=== PATIENT | female | born 1985 | race Caucasian/White ===

== ENCOUNTER 2017-03-13 14:09 | Emergency (ER) | payer MEDICAID, SELFPAY ==
[~2017-03-13] VITALS: Ht 160 cm; Wt 46.0 kg
[2017-03-13 15:04] LABS: BASOPHILS # (AUTO) 0.11 x10^3/uL (0-0.1); BASOPHILS % (AUTO) 1 % (0-1); EOSINOPHILS # (AUTO) 0.09 x10^3/uL (0-0.4); EOSINOPHILS % (AUTO) 1 % (1-7); LYMPHOCYTES # (AUTO) 1.96 x10^3/uL (1-3.4); LYMPHOCYTES % (AUTO) 26 % (22-44); MD NO; MEAN CORPUSCULAR HEMOGLOBIN 30.2 pg (27.0-34.8); MEAN CORPUSCULAR HGB CONC 33.5 g/dL (32.4-35.8); MEAN CORPUSCULAR VOLUME 90.3 fL (80-100); MEAN PLATELET VOLUME 7.2 fL (7.4-10.4); MONOCYTES # (AUTO) 0.49 x10^3/uL (0.2-0.8); MONOCYTES % (AUTO) 6 % (2-9); NEUTROPHILS # (AUTO) 4.94 x10^3/uL (1.8-6.8); NEUTROPHILS % (AUTO) 65 % (42-75); PLATELET COUNT 329 x10^3/uL (130-400); RED BLOOD COUNT 4.25 x10^6/uL (3.82-5.3); RED CELL DISTRIBUTION WIDTH 13.6 % (9.6-15.2)
[2017-03-13 15:30] VITALS: BP 157/106
[2017-03-13 15:55] LABS: ALANINE AMINOTRANSFERASE 63 U/L (12-78); ALBUMIN 3.9 g/dL (3.4-5.0); ALKALINE PHOSPHATASE 72 U/L (45-117); ANION GAP 10 mmol/L (5-15); BILIRUBIN,TOTAL 0.3 mg/dL (0.2-1.0); CALCIUM 9.1 mg/dL (8.5-10.1); CHLORIDE 109 mmol/L (98-107); CREATININE 0.89 mg/dL (0.55-1.02); TOTAL PROTEIN 7.4 g/dL (6.4-8.2)
== END 2017-03-13 16:42 | disposition home or self-care (01) ==
LOC: ED 16:30
DX: S16.1XXA Strain of muscle, fascia and tendon at neck level, initial encounter (principal); S46.911A Strain of unspecified muscle, fascia and tendon at shoulder and upper arm level, right arm, initial encounter; S46.912A Strain of unspecified muscle, fascia and tendon at shoulder and upper arm level, left arm, initial encounter; X58.XXXA Exposure to other specified factors, initial encounter; Y93.89 Activity, other specified; Y92.098 Other place in other non-institutional residence as the place of occurrence of the external cause; Y99.8 Other external cause status
CPT/HCPCS: 36415; 80053; 85025; 99284

== ENCOUNTER 2019-07-11 18:32 | Inpatient (IN) | payer MEDICAID ==
[~2019-07-11] VITALS: Ht 160 cm; Wt 43.6 kg
--- NOTE | 2019-07-11 18:44 | NUR ---
PT TO RM AT THIS TIME
--- NOTE | 2019-07-11 19:03 | NUR ---
THIS IS A 34Y F THAT COMES IN TONIGHT FOR C/O AMB PAIN, NAUSEA, AND HILTON [id number]. PT STS HX OF PANCREATITIS AND WAS SEEN AT [facility] WITHIN THE WEEK FOR THE SAME THING. PT REPORTS HX OF HTN WHEN DRINKING BUT DENIES HTN DX. PT CONNECTED TO MONITORING MD AWARE OF VITALS
--- NOTE | 2019-07-11 19:03 | NUR ---
MD AT BEDSIDE TO ASSESS PT
[2019-07-11] MEDS ORDERED: ONDANSETRON 2MG/ML, 2ML ONE (19:20)
[2019-07-11] MEDS ORDERED: PROMETHAZINE 25 MG/ML, 1ML ONE (19:20)
[2019-07-11] MEDS ORDERED: MORPHINE SULFATE 4 MG/ML, 1ML ONE (19:21)
--- NOTE | 2019-07-11 19:29 | NUR ---
PIV STARTED PT MEDICATED PER MAR
[2019-07-11] MEDS ORDERED: ONDANSETRON 2MG/ML, 2ML IVPush ONE (19:30)
[2019-07-11] MEDS ORDERED: MORPHINE SULFATE 4 MG/ML, 1ML IVPush PRN (19:30)
[2019-07-11] MEDS ORDERED: SODIUM CHLORIDE 0.9% 1,000ML IVBOLUS ONE (19:30)
[2019-07-11] MEDS ORDERED: PROMETHAZINE 25 MG/ML, 1ML IM ONE (19:30)
[2019-07-11 19:34] LABS: BASOPHILS # (AUTO) 0.03 x10^3/uL (0-0.1); BASOPHILS % (AUTO) 1 % (0-1); EOSINOPHILS # (AUTO) 0.07 x10^3/uL (0-0.4); EOSINOPHILS % (AUTO) 1 % (1-7); LYMPHOCYTES # (AUTO) 2.53 x10^3/uL (1-3.4); LYMPHOCYTES % (AUTO) 48 % (22-44); MD NO; MEAN CORPUSCULAR HEMOGLOBIN 32.4 pg (27.0-34.8); MEAN CORPUSCULAR HGB CONC 33.7 g/dL (32.4-35.8); MEAN CORPUSCULAR VOLUME 96.1 fL (80-100); MEAN PLATELET VOLUME 6.6 fL (7.4-10.4); MONOCYTES # (AUTO) 0.36 x10^3/uL (0.2-0.8); MONOCYTES % (AUTO) 7 % (2-9); NEUTROPHILS # (AUTO) 2.31 x10^3/uL (1.8-6.8); NEUTROPHILS % (AUTO) 44 % (42-75); PLATELET COUNT 272 x10^3/uL (130-400); RED BLOOD COUNT 3.96 x10^6/uL (3.82-5.3); RED CELL DISTRIBUTION WIDTH 16.1 % (9.6-15.2)
[2019-07-11 19:47] LABS: ALBUMIN 3.2 g/dL (3.4-5.0); ANION GAP 8 mmol/L (5-15); CALCIUM 8.4 mg/dL (8.5-10.1); CHLORIDE 106 mmol/L (98-107); CREATININE 0.82 mg/dL (0.55-1.02)
[2019-07-11 19:52] LABS: ALKALINE PHOSPHATASE 90 U/L (45-117); BILIRUBIN,TOTAL 0.3 mg/dL (0.2-1.0); TOTAL PROTEIN 6.3 g/dL (6.4-8.2)
[2019-07-11 19:55] LABS: ALANINE AMINOTRANSFERASE 71 U/L (12-78)
--- NOTE | 2019-07-11 20:09 | NUR ---
PT UP TO RESTROOM TO URINE SAMPLE, URINE WALKED TO LAB AT THIS TIME
[2019-07-11 20:17] LABS: MICROSCOPIC AUTO
[2019-07-11] MEDS ORDERED: LABETALOL 5MG/ML, 20ML ONE (20:34)
[2019-07-11 20:35] LABS: AMPHETAMINE SCREEN, URINE Negative (Negative); BARBITURATE SCREEN, URINE Negative (Negative); BENZODIAZEPINE SCREEN, URINE Negative (Negative); CANNABINOID SCREEN, URINE Negative (Negative); COCAINE SCREEN, URINE Negative (Negative); METHADONE SCREEN, URINE Negative (Negative); OPIATE SCREEN, URINE Positive (Negative)
--- NOTE | 2019-07-11 20:37 | NUR ---
PT MEDICATED PER APR FOR HTN PER DR OAKES
--- NOTE | 2019-07-11 20:48 | NUR ---
BP NOW 170/115, ERP TO BE UPDATED AT THIS TIME
[2019-07-11] MEDS ORDERED: ENALAPRILAT 1.25 MG/ML, 1ML ONE (20:51)
--- NOTE | 2019-07-11 20:59 | NUR ---
ADDITIONAL ORDERS AT THIS TIME. PT MEDICATED PER APR, BP NOW 194/110, DR OAKES AT BEDSIDE TO REASSESS PT
[2019-07-11] MEDS ORDERED: LABETALOL 5MG/ML, 20ML IVPush ONE (21:00)
[2019-07-11] MEDS ORDERED: ENALAPRILAT 1.25 MG/ML, 2ML IV ONE (21:00)
[2019-07-11] MEDS ORDERED: POTASSIUM CHLORIDE 20 MEQ, MAGNESIUM SULFATE 1 GM, FOLIC ACID 1 MG, THIAMINE 200 MG, MV... IV SCH (21:00)
--- NOTE | 2019-07-11 21:40 | NUR ---
TP RN: PT WITH NON-CONTRACTED HEALTH INSURANCE. PT DENIED FROM [facility].
[2019-07-11 21:59] LABS: INTERNATIONAL NORMALIZED RATIO 1.08 (0.93-1.1); PROTHROMBIN TIME 11.5 Seconds (9.6-11.5)
--- NOTE | 2019-07-11 22:14 | NUR ---
PT RESTING ON TAERNEG[place] NAD[place]oco, REPORTS IMPROVED PAIN AND NAUSEA SINCE ARRIVING
--- NOTE | 2019-07-11 22:30 | NUR ---
HOSPITALIST AT BEDSIDE TO ADMIT PT AT THIS TIME
--- NOTE | 2019-07-11 22:51 | NUR ---
REPORT TO FLOOR RN PT READY FOR TRANSFER TO FLOOR ALL QUESTIONS ADDRESSED
[2019-07-11] MEDS ORDERED: BISACODYL 10 MG SUPP PR PRN (23:00)
[2019-07-11] MEDS ORDERED: POLYETHYLENE GLYCOL 17 GM PACKET PO PRN (23:00)
[2019-07-11] MEDS ORDERED: ONDANSETRON 2MG/ML, 2ML IVPush PRN (23:00)
[2019-07-11] MEDS ORDERED: ACETAMINOPHEN 325 MG TABLET PO PRN (23:00)
[2019-07-11] MEDS: NICOTINE 7 MG/24 HR PATCH.TD24 TD SCH (23:00)
[2019-07-11 23:31] VITALS: BP 159/103
[2019-07-12] VITALS (7 sets, daily range): BP systolic 155–196; BP diastolic 97–119
[2019-07-12] MEDS: HEPARIN 5,000 UNITS/ML, 1ML SQ SCH ×3 (00:24→17:03)
[2019-07-12] MEDS: POTASSIUM CHLORIDE 40 MEQ in LACTATED RINGERS 1,000 ML IV SCH ×3 (02:38→14:40)
[2019-07-12 05:50] LABS: BASOPHILS # (AUTO) 0.02 x10^3/uL (0-0.1); BASOPHILS % (AUTO) 1 % (0-1); EOSINOPHILS # (AUTO) 0.07 x10^3/uL (0-0.4); EOSINOPHILS % (AUTO) 2 % (1-7); LYMPHOCYTES # (AUTO) 2.13 x10^3/uL (1-3.4); LYMPHOCYTES % (AUTO) 49 % (22-44); MD NO; MEAN CORPUSCULAR HEMOGLOBIN 32.7 pg (27.0-34.8); MEAN CORPUSCULAR HGB CONC 34.3 g/dL (32.4-35.8); MEAN CORPUSCULAR VOLUME 95.5 fL (80-100); MEAN PLATELET VOLUME 6.8 fL (7.4-10.4); MONOCYTES # (AUTO) 0.28 x10^3/uL (0.2-0.8); MONOCYTES % (AUTO) 6 % (2-9); NEUTROPHILS # (AUTO) 1.89 x10^3/uL (1.8-6.8); NEUTROPHILS % (AUTO) 43 % (42-75); PLATELET COUNT 205 x10^3/uL (130-400); RED BLOOD COUNT 3.25 x10^6/uL (3.82-5.3); RED CELL DISTRIBUTION WIDTH 16.5 % (9.6-15.2)
[2019-07-12 05:59] LABS: ALANINE AMINOTRANSFERASE 54 U/L (12-78); ALBUMIN 2.7 g/dL (3.4-5.0); ANION GAP 6 mmol/L (5-15); CALCIUM 7.5 mg/dL (8.5-10.1); CHLORIDE 113 mmol/L (98-107); CREATININE 0.68 mg/dL (0.55-1.02)
[2019-07-12 06:03] LABS: ALKALINE PHOSPHATASE 64 U/L (45-117); BILIRUBIN,TOTAL 0.4 mg/dL (0.2-1.0); CHOLESTEROL, TOTAL 120 mg/dL (140-239); HDL CHOL % 51 % (28-40); HDL CHOLESTEROL (DIRECT) 61 mg/dL (40-60); LDL CHOLESTEROL,CALCULATED 8 mg/dL (54-169); LDL/HDL RATIO 0.1 (0.5-3.0); TOTAL PROTEIN 5.3 g/dL (6.4-8.2); TRIGLYCERIDES 256 mg/dL (50-200); VLDL CHOLESTEROL 51 mg/dL (0-25)
[2019-07-12] MEDS: INSULIN LISPRO 100 UNITS/ML, PEN SQ-INSULIN SCH ×4 (07:00→21:00)
[2019-07-12] MEDS ORDERED: MAGNESIUM SULFATE PMX 2GM/50ML 50 ML IV ONE (08:00)
[2019-07-12] MEDS: SENNA/DOCUSATE TABLET PO SCH ×2 (08:54→08:58)
[2019-07-12] MEDS: HYDROmorphone 2 MG/ML, 1ML IVPush PRN ×2 (08:55→18:06)
[2019-07-12] MEDS ORDERED: LORazepam 0.5MG TABLET PO PRN (12:30)
[2019-07-12] MEDS: hydrALAzine 20 MG/ML, 1ML IVPush PRN (14:40)
[2019-07-12] MEDS: ENALAPRILAT 1.25 MG/ML, 1ML IV PRN (17:03)
[2019-07-12] MEDS: NICOTINE 7 MG/24 HR PATCH.TD24 TD SCH (23:00)
[2019-07-13] VITALS (7 sets, daily range): BP systolic 148–179; BP diastolic 87–100
[2019-07-13] MEDS: POTASSIUM CHLORIDE 40 MEQ in LACTATED RINGERS 1,000 ML IV SCH ×3 (00:18→22:18)
[2019-07-13] MEDS: HEPARIN 5,000 UNITS/ML, 1ML SQ SCH ×3 (01:09→16:09)
[2019-07-13] MEDS: HYDROmorphone 2 MG/ML, 1ML IVPush PRN ×3 (01:20→10:32)
[2019-07-13] MEDS: INSULIN LISPRO 100 UNITS/ML, PEN SQ-INSULIN SCH ×4 (07:00→21:00)
[2019-07-13] MEDS: hydrALAzine 20 MG/ML, 1ML IVPush PRN (07:46)
[2019-07-13] MEDS: SENNA/DOCUSATE TABLET PO SCH (08:27)
[2019-07-13 09:29] LABS: ANION GAP 9 mmol/L (5-15); C-REACTIVE PROTEIN, QUANT 0.06 mg/dL (0.02-0.49); CALCIUM 8.2 mg/dL (8.5-10.1); CHLORIDE 106 mmol/L (98-107); CREATININE 0.48 mg/dL (0.55-1.02)
[2019-07-13 10:03] LABS: MD YES; MEAN CORPUSCULAR HEMOGLOBIN 32.5 pg (27.0-34.8); MEAN CORPUSCULAR HGB CONC 33.2 g/dL (32.4-35.8); MEAN CORPUSCULAR VOLUME 97.6 fL (80-100); MEAN PLATELET VOLUME 7.3 fL (7.4-10.4); PLATELET COUNT 199 x10^3/uL (130-400); RED BLOOD COUNT 3.62 x10^6/uL (3.82-5.3); RED CELL DISTRIBUTION WIDTH 16.3 % (9.6-15.2)
[2019-07-13 10:24] LABS: <RBC MORPHOLOGY> NORMAL; EOS#(MANUAL) 0.09 x10^3/uL (0.0-0.4); EOS% (MANUAL) 2 % (1-7); LYMPH#(MANUAL) 1.94 x10^3/uL (1-3.4); LYMPHS% (MANUAL) 45 % (22-44); MONOS#(MANUAL) 0.22 x10^3/uL (0.3-2.7); MONOS% (MANUAL) 5 % (2-9); SEG#(MANUAL) 2.06 x10^3/uL (1.8-6.8); SEGS% (MANUAL) 48 % (42-75)
[2019-07-13 10:25] LABS: <PLATELET ESTIMATE> ADEQUATE; <PLT MORPHOLOGY> NORMAL PLT MORPH
[2019-07-13 10:28] LABS: HCT (SEDRATE) 35.4 % (34.6-47.8)
[2019-07-13 10:29] LABS: HEMOGRAM NOTE RECHECKED
[2019-07-13] MEDS ORDERED: ENALAPRILAT 1.25 MG/ML, 2ML ONE (11:14)
[2019-07-13] MEDS: ENALAPRILAT 1.25 MG/ML, 1ML IV PRN (11:17)
[2019-07-13] MEDS: NICOTINE 7 MG/24 HR PATCH.TD24 TD SCH (23:00)
[2019-07-14] MEDS: HEPARIN 5,000 UNITS/ML, 1ML SQ SCH ×2 (00:52→07:52)
[2019-07-14 02:00] VITALS: BP 162/93
[2019-07-14 06:15] LABS: BASOPHILS # (AUTO) 0.02 x10^3/uL (0-0.1); BASOPHILS % (AUTO) 1 % (0-1); EOSINOPHILS # (AUTO) 0.08 x10^3/uL (0-0.4); EOSINOPHILS % (AUTO) 2 % (1-7); LYMPHOCYTES # (AUTO) 1.85 x10^3/uL (1-3.4); LYMPHOCYTES % (AUTO) 45 % (22-44); MD NO; MEAN CORPUSCULAR HEMOGLOBIN 32.5 pg (27.0-34.8); MEAN CORPUSCULAR HGB CONC 33.5 g/dL (32.4-35.8); MEAN CORPUSCULAR VOLUME 97.2 fL (80-100); MEAN PLATELET VOLUME 7.4 fL (7.4-10.4); MONOCYTES # (AUTO) 0.26 x10^3/uL (0.2-0.8); MONOCYTES % (AUTO) 6 % (2-9); NEUTROPHILS # (AUTO) 1.94 x10^3/uL (1.8-6.8); NEUTROPHILS % (AUTO) 47 % (42-75); PLATELET COUNT 199 x10^3/uL (130-400); RED BLOOD COUNT 3.96 x10^6/uL (3.82-5.3); RED CELL DISTRIBUTION WIDTH 17.4 % (9.6-15.2)
[2019-07-14 06:17] LABS: HCT (SEDRATE) 38.2 % (34.6-47.8)
[2019-07-14 06:27] LABS: ANION GAP 9 mmol/L (5-15); CALCIUM 8.6 mg/dL (8.5-10.1); CHLORIDE 106 mmol/L (98-107)
[2019-07-14 06:30] LABS: C-REACTIVE PROTEIN, QUANT 0.06 mg/dL (0.02-0.49); CREATININE 0.53 mg/dL (0.55-1.02)
[2019-07-14 06:31] VITALS: BP 183/106
[2019-07-14] MEDS: INSULIN LISPRO 100 UNITS/ML, PEN SQ-INSULIN SCH ×3 (07:00→14:57)
[2019-07-14] MEDS: SENNA/DOCUSATE TABLET PO SCH (07:52)
[2019-07-14] MEDS: hydrALAzine 20 MG/ML, 1ML IVPush PRN (07:52)
[2019-07-14 08:48] VITALS: BP 150/96
[2019-07-14] MEDS: POTASSIUM CHLORIDE 40 MEQ in LACTATED RINGERS 1,000 ML IV SCH (11:16)
[2019-07-14 12:08] VITALS: BP 154/109
[2019-07-14] MEDS ORDERED: FOLI-17 PO (12:54)
[2019-07-14] MEDS ORDERED: MULT-658 PO (12:54)
[2019-07-14] MEDS ORDERED: THIA100T67 PO (12:54)
[2019-07-14] MEDS ORDERED: HYDR-3343 PO (13:45)
== END 2019-07-14 15:49 | disposition home or self-care (01) | DRG 440 ==
LOC: ED 20:09 → EDIP 21:44 → 5SO 23:23 → 4EST 07-12 17:56
PROVIDERS: ADMIT Hospitalist; ATTEND Hospitalist
DX: K85.20 Alcohol induced acute pancreatitis without necrosis or infection (principal); E83.42 Hypomagnesemia; K86.0 Alcohol-induced chronic pancreatitis; E87.6 Hypokalemia; F17.200 Nicotine dependence, unspecified, uncomplicated; I10 Essential (primary) hypertension; G56.00 Carpal tunnel syndrome, unspecified upper limb; F10.20 Alcohol dependence, uncomplicated
CPT/HCPCS: 36415; 96361; 96372; 96374; 96375; 99285; J7042; 76700; 80048; 80053; 80061; 80307; 81001; 82962; 83036; 83690; 83735; 84703; 85025; 85610; 85651; 86140; 87086; 93005; G0378; J1170; J1644; J2405; J2550; J3411; J3475; J3480; J0360; J2270; J7030; J7120